=== PATIENT | female | born 1990 | race Caucasian/White ===

== ENCOUNTER → 2018-12-30 09:33 | Outpatient (CLI) | payer OTHER, MEDICAID, SELFPAY ==
[2018-12-30 09:54] LABS: Add Manual Diff / Slide Review NO; Basophils Absolute Auto 100 /uL (0-100); Basophils Percent Auto 0.4 % (0-2); Eosinophils Absolute Auto 100 /uL (0-450); Eosinophils Percent Auto 0.4 % (2-4); Hematocrit 36.2 % (36-46); Lymphocytes Absolute Auto 2900 /uL (1100-4500); Lymphocytes Percent Auto 19.6 % (25-40); Mean Corpuscular HGB Conc 33.3 % (30-36); Mean Corpuscular Hemoglobin 29.5 PG (26-34); Mean Corpuscular Volume 88.6 fL (80-100); Monocytes Absolute Auto 900 /uL (0-900); Monocytes Percent Auto 5.9 % (3-14); Neutrophils Absolute Auto 11000 /uL (1500-7000); Neutrophils Percent Auto 73.7 % (50-75); Platelet Count 312 X10^3/uL (150-400); Red Blood Cell Count 4.08 X10^6/uL (4.0-5.2); Red Cell Distribution Width 13.5 % (11.6-14.8); White Blood Cell Count 14.9 X10^3/uL (4.5-11.0)
[2018-12-30 09:58] LABS: Appearance Urine UA CLEAR; Bilirubin Urine UA NEGATIVE (NEGATIVE); Color Urine UA YELLOW; Glucose Urine UA NEGATIVE (Negative); Ketones Urine UA NEGATIVE (NEGATIVE); Leukocyte Esterase Urine UA TRACE (NEGATIVE); Nitrite Urine UA NEGATIVE (Negative); Occult Blood Urine UA NEGATIVE (Negative); Protein Urine UA NEGATIVE (Negative); Urobilinogen Urine UA 0.2 E.U./dL (0.2)
[2018-12-30 09:59] LABS: Bacteria Urine None Seen; RBC Urine None Seen (0-5/HPF)
[2018-12-30 10:08] LABS: Hyaline Casts Urine 0-1/LPF; Squamous Epithelial Cell Urine 5-10 /HPF (0-5/HPF); WBC Urine 1-5/HPF (0-5/HPF)
[2018-12-30 11:20] LABS: Hepatitis B Surface Antigen NEGATIVE s/c (NEGATIVE); Rubella Antibody IgG 77.1 IU/mL (>15)
[2018-12-30 11:41] LABS: HIV 1 & 2 Ab/Ag 4th Gen Combo NEGATIVE (NEGATIVE); Hep C Virus Ab w/Reflex Quant NEGATIVE s/c (NEGATIVE)
[2019-01-01 22:28] LABS: RPR Screen Nonreactive (Nonreactive)
== END ==
PROVIDERS: Visit Provider Obstetrics & Gynecology
DX: Z34.01 Encounter for supervision of normal first pregnancy, first trimester (principal)
CPT/HCPCS: 36415; 80055; 81003; 81015; 86787; 86803; 86850; 86900; 86901; 87086; 87389

== ENCOUNTER → 2019-01-30 15:10 | Outpatient (CLI) | payer OTHER, MEDICAID, SELFPAY ==
[2019-02-02 21:30] LABS: Brief History NTD NG; Calc Gestational Age 19.4; Cigarette Smoker N; Donated Egg N; Donor Egg Age NOT GIVEN; Estriol, Free 1.46 ng/mL; Inhibin A, Dimeric 262 pg/mL; Maternal Ethnicity Caucasain; Maternal Weight 161 lbs; Number of Fetuses 1; Previous Pregnancy Down Syndro N; hCG, Serum 39.2 IU/mL
== END ==
PROVIDERS: Visit Provider Obstetrics & Gynecology
DX: Z34.92 Encounter for supervision of normal pregnancy, unspecified, second trimester (principal); Z3A.19 19 weeks gestation of pregnancy
CPT/HCPCS: 36415; 82105; 82677; 84702; 86336

== ENCOUNTER 2019-05-23 14:45 | Outpatient (CLI) | payer OTHER, MEDICAID, SELFPAY ==
--- NOTE | 2019-05-23 15:25 | P.TNLD_ITS ---
Visit Information Visit Information Date of evaluation: 05/23/19 Primary OB Provider: She Donis Reason for Evaluation: Yes rule out labor [facility] Medical History (Updated 05/23/19 @ 18:58 by She Donis MD) Alopecia (Chronic) Anemia (Chronic) Social History Smoking Status: Current some day smoker Evaluation Evaluation Baseline heart rate: 130 Variability: Moderate (11-25) monitor accelerations: Present monitor decelerations: Absent Uterine Contraction Intensity: Mild Category of Tracing: I Diagnosis, Plan/Disposition Final Diagnosis (1) Premature uterine contractions: Current Visit: Yes Status: Acute (2) 35 weeks gestation of : Current Visit: Yes Status: Acute Plan/Disposition Plan: Patient with uterine irritability rather than active contractions. Patient was discharged home. Precautions reviewed with the patient. She has an appointment in 1 week for follow-up. OB Disposition: home
== END 2019-05-23 15:30 | disposition home or self-care (01) ==
LOC: OB 05-24 11:27
PROVIDERS: Referring Provider Specialist; Visit Provider Specialist
DX: O62.8 Other abnormalities of forces of labor (principal); O99.333 Smoking (tobacco) complicating pregnancy, third trimester; Z3A.35 35 weeks gestation of pregnancy
CPT/HCPCS: 59025; 87653; G0378; G0379

== ENCOUNTER → 2019-05-23 14:46 | Outpatient (CLI) | payer OTHER, MEDICAID, SELFPAY ==
[2019-05-24 14:54] LABS: Strep Grp B PCR NEG for Grp B Strep
== END ==
PROVIDERS: Visit Provider Specialist
DX: Z34.83 Encounter for supervision of other normal pregnancy, third trimester (principal)
CPT/HCPCS: 87653

== ENCOUNTER 2019-06-15 07:24 | Inpatient (IN) | payer OTHER, MEDICAID, SELFPAY ==
[2019-06-15] MEDS: LACTATED RINGERS 1,000 ML 100 ML IV ×2 (08:39→16:02)
[2019-06-15] MEDS: OXYTOCIN PREMIX 30 UNIT/500 ML PLAST..BAG IV (08:41)
[2019-06-15 09:02] LABS: Add Manual Diff / Slide Review NO; Basophils Absolute Auto 100 /uL (0-100); Basophils Percent Auto 0.5 % (0-2); Eosinophils Absolute Auto 100 /uL (0-450); Eosinophils Percent Auto 0.5 % (2-4); Hematocrit 35.6 % (36-46); Hemoglobin 11.9 g/dL (12.0-16.0); Lymphocytes Absolute Auto 2300 /uL (1100-4500); Lymphocytes Percent Auto 16.9 % (25-40); Mean Corpuscular HGB Conc 33.5 % (30-36); Mean Corpuscular Hemoglobin 30.2 PG (26-34); Monocytes Absolute Auto 1100 /uL (0-900); Monocytes Percent Auto 8.6 % (3-14); Neutrophils Absolute Auto 9900 /uL (1500-7000); Neutrophils Percent Auto 73.5 % (50-75); Platelet Count 239 X10^3/uL (150-400); Red Blood Cell Count 3.96 X10^6/uL (4.0-5.2); Red Cell Distribution Width 13.4 % (11.6-14.8); White Blood Cell Count 13.4 X10^3/uL (4.5-11.0)
[2019-06-15 10:51] VITALS: BP 126/62
--- NOTE | 2019-06-15 12:01 | P.HPOB_ITS ---
OB HPI Date/Time Date of admission: 06/15/19 Date Patient Seen: 06/15/19 Time Patient Seen: 08:00 History of Present Condition Chief complaint: maternity : 2 Para: 0 Estimated Date of Delivery: 06/21/19 Estimated Gestational Age (weeks): 39 Narrative: Leonor Broussard is a 28 year old female admitted for induction at 39 weeks for distance from the hospital Indications Indication for induction OB: maternal distance History of Present care: good care, initiated at week # (11), number of visits (10) and pounds weight gain (20) Dating criteria: LMP confirmed by 1st trimester US Ultrasounds: normal mid trimester US Obstetrical complications: none Medical complications: none Preadmission Labs Blood type: B (+) positive -: Antibody screen: negative, GBS status: negative, HBsAG: negative, HIV: negative and RPR/VDLR: negative -: Chlamydia screen: not detected and Gonorrhea screen: not detected -: Rubella: immune and Varicella: immune HCAB: negative PAP: Normal Quad screen: Normal 1 hr GTT: 201 3 hr GTT: 1 hr (201), 2 hr (145) and 3 hr (84) Fasting blood glucose: 86 Narrative: Patient monitor blood sugars and diet Evaluation Evaluation Baseline heart rate: 130 Variability: Moderate (11-25) monitor accelerations: Present monitor decelerations: Absent Contraction Frequency (minutes): 5 Uterine Contraction Intensity: Mild Category of Tracing: I Cervical dilation (cm): 3 Cervical effacement (%): 70 station: -2 Laboratory results: Laboratory Tests 06/15/19 06/15/19 08:35 08:35 WBC 13.4 H RBC 3.96 L Hgb 11.9 L Hct 35.6 L MCV 90.0 MCH 30.2 MCHC 33.5 RDW 13.4 Plt Count 239 Neut % (Auto) 73.5 Lymph % (Auto) 16.9 L [place] % (Auto) 8.6 Eos % (Auto) 0.5 L Baso % (Auto) 0.5 Neut # (Auto) 9900 H Lymph # (Auto) 2300 [place] # (Auto) 1100 H Eos # (Auto) 100 Baso # (Auto) 100 Blood Type B Positive Antibody Screen Negative [facility] Medical History (Updated 06/01/19 @ 12:43 by She Donis MD) Alopecia (Chronic) Anemia (Chronic) Social History Smoking Status: Current some day smoker Meds Home Medications and Allergies Home Medications Medication Instructions Recorded Confirmed Type prenat.vits,brittani,cjy-[id number]-vpncp 1 tab PO DAILY 12/07/18 12/07/18 History Double Electric breast Pump and #1 each 04/19/19 Rx Supplies Blood Glucose Monitoring #1 each NS 04/26/19 Rx blood sugar diagnostic #400 each 04/26/19 Rx lancets #400 each 04/26/19 Rx Allergies Allergy/AdvReac Type Severity Reaction Status Date / Time hazelnut Allergy Intermediate Verified 12/07/18 15:30 Review of Systems Review of Systems Narrative: Patient denies headaches, scotomata, epigastric pain. No fevers, cough or shortness of breath. No leakage of fluid. Good movement. ROS: Yes All systems reviewed with the patient and are negative except as otherwise documented Exam Vital Signs (past 8 hours): - Blood pressure 120/77, pulse 74, temperature 36.3 06/15/19 10:51 Blood Pressure 126/62 Narrative Exam Narrative: HEENT exam within normal limits. Lungs are clear to auscultation percussion. Heart is regular rate and rhythm no S3-S4 or murmurs. Fetus is vertex. Extremities with trace edema and nontender. Objective Labs Result Diagrams: 06/15/19 08:35 Labs: Laboratory Results - last 24 hr 06/15/19 06/15/19 08:35 08:35 WBC 13.4 H RBC 3.96 L Hgb 11.9 L Hct 35.6 L MCV 90.0 MCH 30.2 MCHC 33.5 RDW 13.4 Plt Count 239 Neut % (Auto) 73.5 Lymph % (Auto) 16.9 L [place] % (Auto) 8.6 Eos % (Auto) 0.5 L Baso % (Auto) 0.5 Neut # (Auto) 9900 H Lymph # (Auto) 2300 [place] # (Auto) 1100 H Eos # (Auto) 100 Baso # (Auto) 100 Blood Type B Positive Antibody Screen Negative Assessment and Plan Assessment and Plan Assessment and Plan narrative: 39 week gestation living a distance from the hospital admitted for Pitocin induction. Anticipate vaginal delivery
[2019-06-15] MEDS: FENT 2MCG/ML BUPIV 0.125% EPI 200 MCG/100 ML PLAST..BAG 8 MCG EPIDURAL (15:41)
--- NOTE | 2019-06-15 17:35 | PM.OBPRVD ---
Labor & Delivery Delivery date: 06/15/19 Intrapartal events: None Cervical ripening method: none Induction method: per pitocin protocol Delivery monitor: external FHT and external uterine Route of delivery: L&D Laceration Description: Perineal - 1st Degree Delivery repair: chromic (3 0) Estimated blood loss (mL): 100 Anesthesia type: Epidural Narrative: Patient arrived on Labor and delivery for induction at 39 weeks due to distance from the hospital. She was started on Pitocin. She was AROM for clear fluid. She received an epidural catheter for pain control. heart tones category 1 to category 2 throughout labor. She had a spontaneous vaginal delivery of a viable female infant who was placed on the maternal abdomen. After the cord stopped pulsating the cord was clamped, cut, and cord bloods obtained. There were no cervical or vaginal tears. There was a first-degree perineal tear that was repaired with 3 0 chromic suture and a small right labial tear that will 1 suture was placed to reapproximate. Both mother doing well. [place] Baby 1: gender: Female Presentation: vertex position: Right Occiput Anterior Placenta delivery description: Spontaneous cord vessel description: 3 Vessels score (1 min): 9 score (5 min): 9 Plan for aftercare: Routine care
[2019-06-15] MEDS: IBUPROFEN 600 MG TABLET PO (18:33)
[2019-06-16] MEDS: IBUPROFEN 600 MG TABLET PO ×2 (00:37→06:33)
[2019-06-16 06:54] LABS: Hematocrit 32.5 % (36-46); Hemoglobin 10.8 g/dL (12.0-16.0)
--- NOTE | 2019-06-16 09:42 | P.DS_ITS ---
Discharge Providers Provider Date of admission: 06/15/19 07:24 Discharge Date: 06/16/19 Consults: 06/15/19 07:34 Consult to Anesthesiology Urgent Comment: Consulting Provider: Anesthesiologist Reason for consultation: Epidural Has provider been notified: No 06/16/19 17:32 Consult to [employer] Routine Comment: Discharge provider: She Donis MD Summary Hospital Course Date Patient Seen: 06/16/19 Time Patient Seen: 09:43 Procedures: Pitocin induction, epidural catheter, spontaneous vaginal delivery, repair of first-degree perineal tear Hospital Course: Patient arrived on Labor and delivery for induction for distance from the hospital. She had an epidural catheter for pain control. She had a spontaneous vaginal delivery with repair of a first-degree perineal laceration. She did well . She is urinating and ambulating well. Breast-feeding is going well. She denies any headaches, scotomata, epigastric pain. Peripartum Data Delivery Method: Natural Vaginal Laceration description: Perineal - 1st Degree Procedures: Pitocin induction, epidural catheter, spontaneous vaginal delivery, repair of first-degree perineal laceration complications: none [place] 1: Gender: Female Disposition of : home Discharge Diagnosis (1) Vaginal delivery: Status: Acute Status at Discharge Cognitive/behavioral status at discharge: oriented Functional status at discharge: independent ambulation Overall status at discharge: patient is progressing back to baseline Time Spent with Patient Time attestation: Total time spent providing and/or coordinating discharge serv ices: Time spent: Less than 30 minutes Objective Labs Result Diagrams: 06/16/19 06:26 Labs: Laboratory Results - last 24 hr 06/16/19 06:26 Hgb 10.8 L Hct 32.5 L Exam Vital Signs (past 8 hours): Blood pressure 115/71, pulse 71, temperature 35.9? Narrative Exam Narrative: Abdomen is soft, nontender. Uterus is firm, at U, nontender. Repair is intact. Mild lochia. Extremities without edema and nontender. Patient's blood type is B positive. She is rubella immune. She received Tdap in the 3rd trimester. Discharge Plan Discharge Plan Patient Disposition: Home Discharge orders & Medications Prescriptions: New ibuprofen 600 mg Tablet 600 mg PO Q6HR PRN (Reason: Pain, Mild (1-3)) Qty: 30 RF: 0 Continued (DME) Double Electric breast Pump and Supplies See Rx Instructions .ROUTE .MEDSUPPLY Qty: 1 RF: 0 prenat.vits,brittani,[id number] tablet 1 tab PO DAILY RF: 0 Discontinued (DME) blood-glucose meter [Blood Glucose Monitoring] Kit See Rx Instructions .ROUTE .MEDSUPPLY Qty: 1 RF: 0 (DME) blood sugar diagnostic Strip See Rx Instructions .ROUTE .MEDSUPPLY Qty: 400 RF: 0 (DME) lancets [Accu-Chek Softclix Lancets] Misc See Rx Instructions .ROUTE .MEDSUPPLY Qty: 400 RF: 0 Follow up/Referrals: She Donis MD [Physician] - 1 Month Diet/Activity/Treatments Diet: Regular Activity: Nothing in vagina for 4 weeks Skin/Wound/Dressing Care Report to your healthcare provider any signs of infection, such as:: chills, fever and increased pain Discharge Data Attending Provider: She Donis Admit Date/Time: 06/15/19 07:24
[2019-06-16 15:03] VITALS: BP 126/62; PULSE 86; RESP 18; TEMP 37.1
== END 2019-06-16 16:30 | disposition home or self-care (01) | DRG 560 ==
PROVIDERS: Admitting Provider Specialist; Referring Provider Specialist; Visit Provider Specialist
DX: O70.0 First degree perineal laceration during delivery (principal); Z3A.39 39 weeks gestation of pregnancy; Z37.0 Single live birth; O99.334 Smoking (tobacco) complicating childbirth; F17.210 Nicotine dependence, cigarettes, uncomplicated
CPT/HCPCS: 01967; 36415; 59050; 59409; 85014; 85018; 85025; 86850; 86900; 86901; G0379; J2590